=== PATIENT | female | born 1970 | race Caucasian/White ===

== ENCOUNTER 2019-03-07 12:18 | Emergency (ER) | payer OTHER ==
[~2019-03-07] VITALS: Ht 154.9 cm; Wt 86.0 kg
[2019-03-07 12:24] VITALS: BP 165/93; PULSE 95; RESP 18; Ht 154.9 cm; Wt 86.0 kg
[2019-03-07] MEDS ORDERED: ACET1TAB40 PO (12:53)
[2019-03-07] MEDS ORDERED: IBUP-1542 PO (12:53)
[2019-03-07] MEDS ORDERED: ACYC800T5 PO (12:53)
--- NOTE | 2019-03-07 12:59 | ERD ---
ER Documentation Chief Complaint Chief Complaint LEFT EYELID SWELLING & REDNESS X 1 DAY HPI 48-year-old female presents the lesion on her left forehead and some redness of her left upper eyelid. She has a burning pain radiating from her left ear area to her left side of her face. She has any visual changes, discharge or redness of the eye. Symptoms started yesterday. ROS All systems reviewed and are negative except as per history of present illness. Medications Home Meds Active Scripts Acetaminophen with Codeine (Acetaminophen-Cod #3 Tablet) 1 Each Tablet, 1 TAB PO Q6H PRN for PAIN, #7 TAB Prov:JAMES LOVE MD 03/07/19 Ibuprofen* (Motrin*) 600 Mg Tab, 600 MG PO Q6, #15 TAB Prov:JAMES LOVE MD 03/07/19 Acyclovir* (Zovirax*) 800 Mg Tablet, 800 MG PO 5 TIMES DAILY for 7 Days, TAB Prov:JAMES LOVE MD 03/07/19 Allergies Allergies: Coded Allergies: No Known Allergy (Unverified , 03/07/19) FmHx Family History: No diabetes, No coronary disease, No other Physical Exam Vitals Vital Signs Date Temp Pulse Resp B/P (MAP) Pulse Ox O2 O2 Flow FiO2 Time Delivery Rate 03/07/19 98.6 95 18 165/93 94 12:24 (117) Physical Exam Const: No acute distress Head: Atraumatic Eyes: Normal Conjunctiva scleral redness. Eyes Erik and extraocular movements intact. ENT: Normal External Ears, Nose and Mouth. There is a erythematous vesicular lesion on the left forehead. There is some irritation left upper eyelid. There is no appreciable Nolan sign. There is tender left anterior cervical or left-sided neck lymph node. Neck: Full range of motion. No meningismus. Resp: Clear to auscultation bilaterally Cardio: Regular rate and rhythm, no murmurs Abd: Soft, non tender, non distended. Normal bowel sounds Skin: No petechiae or rashes Back: No midline or flank tenderness Ext: No cyanosis, or edema Neur: Awake and alert Psych: Normal Mood and Affect Results 24 hrs Current Medications Medications Dose Sig/Germán Start Time Status Last (Trade) Ordered Route PRN Stop Time Admin Dose Reason Admin 12 mg ONCE ONCE 03/07/19 03/07/19 Dexamethasone PO 13:00 03/07/19 12:45 (Decadron) 13:01 Acyclovir 800 mg ONCE ONCE 03/07/19 03/07/19 (Zovirax) PO 13:00 03/07/19 12:45 13:01 Ibuprofen 600 mg ONCE ONCE 03/07/19 03/07/19 (Motrin) PO 13:00 03/07/19 12:45 13:01 Procedures/MDM Acuity shows no acute abnormalities. Patient presents with erythematous vesicular lesions in the left forehead consistent with herpes zoster. There is no signs or symptoms to suggest herpes ophthalmicus or encephalitis or additiona l complications.. There is no appreciable involvement of the eye. Patient was given acyclovir 800 mg, Decadron 12 mg as well as ibuprofen. She will be treated with acyclovir, Tylenol 3, ibuprofen, recommendations for primary care follow-up and return precautions for visual changes, pain in the eye, fevers, neurologic deficit, new or worsening symptoms. Departure Diagnosis: Primary Impression: Shingles Herpes zoster complications: without complications Qualified Codes: B02.9 - Zoster without complications Condition: Stable Patient Instructions: Shingles (Herpes Zoster) Additional Instructions: Cheque otro vez con hinson doctor primario en el proximo gallardo or regresa para mas o nueva simptomas. JAMES LOVE MD Mar 07, 2019 12:59
[2019-03-07] MEDS ORDERED: IBUPROFEN 600 MG TAB PO ONE (13:00)
[2019-03-07] MEDS ORDERED: DEXAMETHASONE 4 MG TAB PO ONE (13:00)
[2019-03-07] MEDS ORDERED: ACYCLOVIR 800 MG TAB PO ONE (13:00)
== END 2019-03-07 13:00 | disposition home or self-care (01) ==
LOC: FTE 12:18
DX: B02.9 Zoster without complications (principal)
CPT/HCPCS: Z7502; Z7610; 99283

== ENCOUNTER 2019-05-05 17:46 | Inpatient (IN) | payer OTHER ==
[~2019-05-05] VITALS: Ht 152.4 cm; Wt 87.5 kg
[~2019-05-05 17:46] MED LIST: ACET1TAB40 PO; ACYC800T5 PO; IBUP-1542 PO; LEVO500T10 PO; METR500T PO; SERT50TA6 PO
--- NOTE | 2019-05-05 18:00 | ERD ---
ER Documentation Chief Complaint Chief Complaint ap x 1 week HPI The patient is a 48-year-old female, presenting to the ER because of abdominal pain radiating to the back for the last 3 days, had similar symptoms about 6 months ago. She denies fever, chills, neck pain, chest pain, dyspnea, vomiting, diarrhea, constipation, complains of dysuria for 1 week. She does not smoke nor drink Past medical history: Anxiety, panic disorder, depression Past surgical history: 4 ROS All systems reviewed and are negative except as per history of present illness. Medications Home Meds Reported Medications Sertraline Hcl* (Sertraline Hcl*) 50 Mg Tablet, 50 MG PO QAM, #30 TAB 05/05/19 Discontinued Scripts Acetaminophen with Codeine (Acetaminophen-Cod #3 Tablet) 1 Each Tablet, 1 TAB PO Q6H PRN for PAIN, #7 TAB Prov:JAMES LOVE MD 03/07/19 Ibuprofen* (Motrin*) 600 Mg Tab, 600 MG PO Q6, #15 TAB Prov:JAMES LOVE MD 03/07/19 Acyclovir* (Zovirax*) 800 Mg Tablet, 800 MG PO 5 TIMES DAILY for 7 Days, TAB Prov:JAMES LOVE MD 03/07/19 Allergies Allergies: Coded Allergies: No Known Allergy (Unverified , 05/05/19) PMhx/Soc Hx Alcohol Use: No Hx Substance Use: No Hx Tobacco Use: No Physical Exam Vitals Vital Signs Date Temp Pulse Resp B/P (MAP) Pulse Ox O2 O2 Flow FiO2 Time Delivery Rate 05/05/19 99 16 116/75 96 Room Air 20:30 (89) 05/05/19 99.2 111 20 147/86 98 17:49 (106) Physical Exam Const: No acute distress. Head: Atraumatic. Eyes: Normal Conjunctiva. ENT: Normal External Ears, Nose and Mouth. Neck: Full range of motion. No meningismus. Resp: Clear to auscultation bilaterally. Cardio: Regular rate and rhythm. Abd: Soft, non distended, normal bowel sounds, left lower quadrant tenderness, no rigidity/rebound/CVA tenderness Skin: No petechiae or rashes. Back: No midline or flank tenderness. Ext: No cyanosis, or edema. Neur: Awake and alert. No focal deficit Psych: Normal Mood and Affect. Result Diagram: 05/05/196 05/05/19 1816 Results 24 hrs Laboratory Tests Test 05/05/19 18:16 05/05/19 19:54 05/05/19 19:56 White Blood Count 15.3 10^3/ul Red Blood Count 4.45 10^6/ul Hemoglobin 13.4 g/dl Hematocrit 40.4 % Mean Corpuscular Volume 90.8 fl Mean Corpuscular Hemoglobin 30.1 pg Mean Corpuscular Hemoglobin Concent 33.2 g/dl Red Cell Distribution Width 12.0 % Platelet Count 326 10^3/UL Mean Platelet Volume 8.6 fl Immature Granulocytes % 0.300 % Neutrophils % 66.8 % Lymphocytes % 20.8 % Monocytes % 7.0 % Eosinophils % 4.7 % Basophils % 0.4 % Nucleated Red Blood Cells % 0.0 /100WBC Immature Granulocytes # 0.050 10^3/ul Neutrophils # 10.2 10^3/ul Lymphocytes # 3.2 10^3/ul Monocytes # 1.1 10^3/ul Eosinophils # 0.7 10^3/ul Basophils # 0.1 10^3/ul Nucleated Red Blood Cells # 0.0 10^3/ul Sodium Level 141 mmol/L Potassium Level 3.9 mmol/L Chloride Level 103 mmol/L Carbon Dioxide Level 28 mmol/L Anion Gap 10 Blood Urea Nitrogen 11 mg/dl Creatinine 0.58 mg/dl Est Glomerular Filtrat Rate mL/min > 60 mL/min Glucose Level 86 mg/dl Calcium Level 9.5 mg/dl Total Bilirubin 0.5 mg/dl Direct Bilirubin 0.00 mg/dl Indirect Bilirubin 0.5 mg/dl Aspartate Amino Transf (AST/SGOT) 25 IU/L Alanine Aminotransferase (ALT/SGPT) 24 IU/L Alkaline Phosphatase 45 IU/L Total Protein 8.3 g/dl Albumin 4.8 g/dl Globulin 3.50 g/dl Albumin/Globulin Ratio 1.37 Lipase 59 U/L Bedside Urine pH (LAB) 7.0 Bedside Urine Protein (LAB) 2+ Bedside Urine Glucose (UA) Negative Bedside Urine Ketones (LAB) Negative Bedside Urine Blood 2+ Bedside Urine Nitrite (LAB) Negative Bedside Urine Leukocyte Esterase (L Negative POC Beta HCG, Qualitative NEGATIVE Current Medications Medications Dose Sig/Germán Start Time Status Last (Trade) Ordered Route PRN Stop Time Admin Dose Reason Admin Morphine 2 mg ONCE STAT 05/05/19 DC 05/05/19 Sulfate IV 18:11 05/05/19 18:27 (morphine) 18:13 Ondansetron 4 mg ONCE STAT 05/05/19 DC 05/05/19 HCl (Zofran IV 18:11 05/05/19 18:27 Inj) 18:13 Sodium 1,000 ml @ Q1H ONCE 05/05/19 DC 05/05/19 Chloride 1,000 mls/hr IV 18:30 05/05/19 18:27 19:29 0.5 mg ONCE STAT 05/05/19 DC 05/05/19 Hydromorphone IV 20:41 05/05/19 21:09 HCl 20:58 (Dilaudid) Piperacillin 100 ml @ ONCE ONCE 05/05/19 DC 05/05/19 Sod/ 200 mls/hr IVPB 21:00 05/05/19 21:09 Tazobactam 21:29 Sod Sodium 1,000 ml @ Q1H ONCE 05/05/19 DC 05/05/19 Chloride 1,000 mls/hr IV 21:00 05/05/19 21:09 21:59 Procedures/[place] [id number] Radiology Main Line: [phone] DIAGNOSTIC IMAGING REPORT Patient: ALMA DELIA ALEXANDER : 1970 Age: 48 Sex: F MR #: [id number] DOS: 05/05/19 [facility] Ordering MD: DARWIN WORKMAN MD Location: E/R Room/Bed: PROCEDURE: CT Abdomen and Pelvis without contrast. CLINICAL INDICATION: Pain. TECHNIQUE: CT scan of the abdomen and pelvis was performed on a multidetector slice CT scanner. No intravenous contrast material was utilized. Sagittal and coronal reformatted images were obtained from the axial source images. Images were reviewed on a high-resolution PACS workstation. Exam CTDlvol = 22 mGy and DLP = 1289 Gy-cm. One of the following 3 dose reduction techniques were used: Automated exposure control; adjustment of the mA and/or kV according to patient size; or use of iterative reconstruction technique. DICOM images are available. COMPARISON: None. FINDINGS: There is no bowel obstruction or ileus. The appendix is visualized. There is no evidence for appendicitis. There is right, left and sigmoid colon div erticulosis. There is focal wall thickening with surrounding infiltration in the distal left colon compatible with acute diverticulitis. There is no free fluid. There is no free intraperitoneal gas. The liver is overall normal in size. No intrahepatic lesions are identified. The gallbladder is normal in appearance. There is no definite biliary ductal dilation. Pancreas is normal in appearance. The spleen is unremarkable. There are no adrenal masses. The aorta is normal caliber. Atherosclerotic vascular calcifications are present. Kidneys are normal in appearance without hydronephrosis, mass or calculus. Ureters are of normal caliber and without evidence for an obstructing calculus. The urinary bladder is normal in appearance. Uterus is unremarkable. Right ovary is not well characterized. There is a 1.7 cm probable left ovarian cyst. There are multiple right pelvic/adnexal surgical clips. Limited evaluation of the lung bases demonstrates bibasilar atelectasis. There is 2.5 mm calcification in the right middle lobe. There are degenerative changes of the lumbar spine. IMPRESSION: 1. Distal left colon acute diverticulitis without free intraperitoneal gas, free fluid or collection. Diffuse colonic diverticulosis involving the right, left and sigmoid colon. 2. No bowel obstruction or ileus. 3. No evidence for appendicitis. 4. No obstructive uropathy. 5. Left adnexal/ovarian cyst. Right ovary not distinctly visualized. Multiple right pelvic/adnexal surgical clips. 6. Mild atherosclerotic dash calcification. 7. Degenerative changes of the lumbar spine. 8. Punctate right middle lobe granuloma. RPTAT: HMVK .Darwin Denise MD, MD Date Time Electronically viewed and signed by .Darwin Denise MD, on 05/05/2019 19:54 .K/ CC: DARWIN WORKMAN MD [phone] MEDICAL MAKING DECISION: The patient is a 48-year-old female, presenting with acute diverticulitis, acute hematuria, was treated with 1 L normal saline for clinical dehydration, morphine 2 mg IV, Dilaudid 0.5 mg IV for pain, Zofran IV for nausea with good response. The differential diagnoses considered include but are not limited to cholelithiasis, cholecystitis, choledocholithiasis, cholangitis, pancreatitis, hepatitis, gastritis, peptic ulcer disease, gastric ulcer, appendicitis, cystitis, diverticulitis, partial small bowel obstruction. Consultation: I discussed the patient with the on-call surgery edition Dr. Skinner at 8:45 PM, who was made aware of the lab, the treatment, the patient condition and he accepted the consult Departure Diagnosis: Primary Impression: Diverticulitis Additional Impression: Hematuria Condition: Stable Comments The patient's blood pressure was elevated (>120/80) but appears stable without e vidence of hypertension emergency or urgency. The patient was counseled about the risks of hypertension and urged to pursue outpatient monitoring and therapy within a week with their primary care physician. I discussed the findings with the patient. I notified the patient with Dr. Rivero at 9:15p via ORVIBO, who was made aware of the lab, the treatment, the patient condition. The patient is admitted to [facility] Disclaimer: Inadvertent spelling and grammatical errors are likely due to EHR/dictation software use and do not reflect on the overall quality of patient care. Also, please note that the electronic time recorded on this note does not necessarily reflect the actual time of the patient encounter. DARWIN WORKMAN MD May 05, 2019 18:00
[2019-05-05] MEDS ORDERED: ONDANSETRON 4 MG INJ IV STA (18:11)
[2019-05-05] MEDS ORDERED: morphine 2 MG INJ IV STA (18:11)
[2019-05-05] MEDS ORDERED: SOD CHLORIDE 0.9% 1,000 ML IV ONE ×2 (18:30→21:00)
[2019-05-05] MEDS ORDERED: HYDROmorphONE 0.5 MG/0.5 ML SYG IV STA (20:41)
[2019-05-05] MEDS ORDERED: PIPER-TAZO 3.375 GM IV (PMX) 100 ML IVPB ONE (21:00)
[2019-05-06] VITALS: BP 124/71; PULSE 92; RESP 18
[2019-05-06] MEDS ORDERED: ONDANSETRON 4 MG INJ IV PRN
[2019-05-06] MEDS ORDERED: HYDROmorphONE 0.5 MG/0.5 ML SYG IV PRN
[2019-05-06] MEDS: metroNIDAZOLE 500 MG/NS (PMX) 100 ML IVPB SCH ×4 (00:23→21:14)
[2019-05-06] MEDS: DEXTROSE 5%-0.9% NACL 1,000 ML IV SCH ×3 (00:24→18:14)
[2019-05-06 01:22] VITALS: Ht 152.4 cm; Wt 87.5 kg
[2019-05-06] MEDS: CEFTRIAXONE 1 GM/50 ML (PMX) 50 ML IVPB SCH (01:41)
[2019-05-06] MEDS: ACETAMINOPHEN 325 MG TAB PO PRN ×3 (01:45→18:20)
[2019-05-06 02:00] VITALS: BP 115/61; PULSE 83; RESP 18
[2019-05-06] MEDS: PANTOPRAZOLE 40 MG INJ IV SCH (05:29)
[2019-05-06 08:16] VITALS: BP 122/58; PULSE 78; RESP 16
[2019-05-06] MEDS: SERTRALINE 50 MG TAB PO SCH (08:49)
[2019-05-06 15:08] VITALS: BP 126/59; PULSE 76; RESP 16
--- NOTE | 2019-05-06 15:08 | QN ---
Documentation Comment PT SEEN AND EXAMINED DEREK LAUGHLIN MD May 06, 2019 15:08
--- NOTE | 2019-05-06 17:50 | HP ---
DATE OF ADMISSION: 05/05/2019 REASON FOR ADMISSION: Abdominal pain. HISTORY OF PRESENTING ILLNESS: This is a 48-year-old female with a past medical history of anxiety d isorder, panic disorder, depression, presented to the emergency department complaining of left lower quadrant pain for past 1 week. According to the patient, she has had 3 episodes of diverticulitis be fore. She was admitted in some [facility]. She was having left lower quadrant pain for the p ast 1 week associated with some mild nausea and came to the emergency department for further manageme nt. The patient denies any vomiting, any diarrhea. Denies any fevers and chills. The patient denie s any hematemesis, any melena, any blood per rectum. On admission, temperature was 99.2, pulse 111, respirations 20, blood pressure 147/66. White count was 15.3, hemoglobin 13.3, platelet count 326. BUN and creatinine within normal limit. The patient had CT of the abdomen and pelvis that showed dis jude left colon acute diverticulitis without free intraperitoneal gas, free fluid or collection, diffu se colon diverticulosis involving right and left and sigmoid colon. The patient was started on IV an tibiotics with Rocephin and Flagyl and was admitted for further management. PAST MEDICAL HISTORY: 1. Depression. 2. History of diverticulitis x3. ALLERGIES: NO KNOWN ALLERGIES. PAST SURGICAL HISTORY: x4. MEDICATIONS TAKING AT HOME: Sertraline 50. SOCIAL HISTORY: Denies any history of smoking, alcohol or any drug use. Lives with her family. Has PCP. REVIEW OF SYSTEMS: The patient complains of left lower quadrant pain associated with some nausea. D enied any hematemesis, any melena, any bright red blood per rectum. Denies any new focal neurologica l deficit. Denies any urinary symptoms. PHYSICAL EXAMINATION: VITAL SIGNS: Blood pressure 124/71, afebrile currently, pulse 92, respirations 18. GENERAL: The patient is awake, alert, oriented, does not appear to in any acute distress. HEENT: Pupils are equal, round, react to light. Obese. NECK: Supple. HEART: Regular rate and rhythm. LUNGS: Clear to auscultate bilaterally. ABDOMEN: The patient has some tenderness present on the left lower and upper quadrants. Positive yasmani wel sounds. Abdomen is distended. No peritoneal signs. EXTREMITIES: No clubbing, cyanosis or edema. NEUROLOGIC: Nonfocal. LABORATORY DATA: BUN of 9, creatinine 0.58. Lipase 59. White count of initially 15.3, platelet cou nt 326. UA: 2+ blood. DIAGNOSTIC DATA: CT of the abdomen and pelvis as above. ASSESSMENT AND PLAN: A 48-year-old female who presented with: 1. Left lower quadrant pain with nausea with leukocytosis and CT of the abdomen and pelvis consisten t with distal left colon acute diverticulitis without free intraperitoneal gas, free fluid or collect ion. 2. Leukocytosis secondary to #1. 3. Obesity. 4. Depression. PLAN: At this period of time, the patient is admitted to med/surg unit. The patient is kept n.p.o., started on IV fluids and also on IV Rocephin and Flagyl. GI will be consulted. The patient will li rober need a colonoscopy as an outpatient. Rest of the treatment will depend on the patient's hospita lization course. Dictated By: DEREK GRIFFIN/JUSTIN Conf#: [id number] DID#: [id number] CC: CASEY DOWLING MD; KATIE PUENTE MD;*EndCC*
--- NOTE | 2019-05-06 18:46 | CONS ---
DATE OF ADMISSION: 05/05/2019 DATE OF CONSULTATION: TYPE OF CONSULTATION: Gastroenterology. From Katie Lane MD, to Tanya Laguhlin MD. HISTORY OF PRESENT ILLNESS: The patient is a 48-year-old female, came to the ER complaining of abdom inal pain confined to the left lower quadrant for the last 3 days. She had on and off pain in that a jeanette for the last few months. No fever, no chills, no GI bleeding, no constipation. No pneumaturia. PAST MEDICAL HISTORY: Anxiety, panic disorder and depression. PAST SURGICAL HISTORY: Four . SOCIAL HISTORY: Does not smoke or drink alcohol. REVIEW OF SYSTEMS: Otherwise negative. HOME MEDICATIONS: Reviewed. She was on sertraline. HOSPITAL MEDICATIONS: Reviewed. She is on: 1. Pantoprazole 2. Ceftriaxone. 3. Metronidazole. ALLERGIES: NONE. PHYSICAL EXAMINATION: VITALS: Stable, overweight. GENERAL: Not in distress. CARDIOVASCULAR: No murmur, gallop or click. LUNGS: Clear. ABDOMEN: Soft, tenderness in the left lower quadrant, significant. Bowel sounds good. No mass felt per abdomen. EXTREMITIES: No edema. CENTRAL NERVOUS SYSTEM: Grossly within normal limits. LABORATORY DATA: CMP was grossly within normal limits. WBC which was 15.3 dropped down to 9.8. IMPRESSION: 1. Acute diverticulitis. 2. Obesity. 3. Depression. PLAN: To keep her n.p.o. Continue IV antibiotic. We will start her on clear liquid diet once abdom inal pain subsides. She will need a colonoscopy after 6 to 8 weeks. Thank you once again for you referral. Dictated By: KATIE LANE MD PJ/NTS Conf#: [id number] DID#: [id number] CC: CASEY DOWLING MD; TANYA LAUGHLIN;*EndCC*
[2019-05-06 19:43] VITALS: BP 126/70; PULSE 68; RESP 16
[2019-05-07] MEDS: CEFTRIAXONE 1 GM/50 ML (PMX) 50 ML IVPB SCH ×2 (00:11→23:12)
[2019-05-07 02:00] VITALS: BP 119/59; PULSE 67; RESP 18
[2019-05-07] MEDS: PANTOPRAZOLE 40 MG INJ IV SCH (05:41)
[2019-05-07] MEDS: metroNIDAZOLE 500 MG/NS (PMX) 100 ML IVPB SCH ×3 (05:41→21:28)
[2019-05-07] MEDS: DEXTROSE 5%-0.9% NACL 1,000 ML IV SCH ×2 (05:50→16:00)
[2019-05-07 07:31] VITALS: BP 126/74; PULSE 79; RESP 19
[2019-05-07] MEDS: ACETAMINOPHEN 325 MG TAB PO PRN (08:17)
[2019-05-07] MEDS: SERTRALINE 50 MG TAB PO SCH (08:17)
--- NOTE | 2019-05-07 09:57 | CONS ---
Assessment/Plan Assessment/Plan Hospital Course (Demo Recall) 48 yo femlae 1. Acute diverticulitis. 2. Obesity. 3. Depression. PLAN: Spoke with patient regarding colonoscopy 6-8 weeks post resolution, educated on diet changes. Continue IV abx Colonoscopy 6-8 weeks after complete resolution of diverticulitis NPO until pain subsides and can start of clear liquids Pt examined and plan of care d/w Dr. Lane Consultation Date/Type/Reason Admit Date/Time May 05, 2019 at 21:12 Initial Consult Date Date/Time of Note DATE: 05/07/19 TIME: 09:55 24 HR Interval Summary Free Text/Dictation Pt having intermittent pain in LLQ. Improved overall. Still has PTP. WBC wnl. Exam/Review of Systems Exam Vitals Vital Signs Date Temp Pulse Resp B/P (MAP) Pulse Ox O2 O2 Flow FiO2 Time Delivery Rate 05/07/19 98.1 79 19 126/74 96 Room Air 07:31 (91) Intake and Output 05/06/19 05/06/19 05/07/19 1515:00 23:00 07:00 IntakeIntake Total 750 ml 1450 ml BalanceBalance 750 ml 1450 ml Constitutional: alert, oriented Psych: no complaints Head: normocephalic Eyes: nl sclera, PERRL Respiratory: normal air movement Cardiovascular: regular rate and rhythm Gastrointestinal: soft, bowel sounds, tender Musculoskeletal: nl gait and stance Neurological: nl mental status Results Result Diagram: 05/07/19 0600 05/07/19 0600 Results 24hrs Laboratory Tests Test 05/07/19 06:00 White Blood Count 7.0 # Red Blood Count 4.00 L Hemoglobin 12.0 Hematocrit 36.3 L Mean Corpuscular Volume 90.8 Mean Corpuscular Hemoglobin 30.0 Mean Corpuscular Hemoglobin Concent 33.1 Red Cell Distribution Width 11.9 Platelet Count 281 Mean Platelet Volume 8.7 Immature Granulocytes % 0.400 Neutrophils % 58.0 Lymphocytes % 26.1 Monocytes % 7.7 Eosinophils % 7.2 H Basophils % 0.6 Nucleated Red Blood Cells % 0.0 Immature Granulocytes # 0.030 Neutrophils # 4.1 Lymphocytes # 1.8 Monocytes # 0.5 Eosinophils # 0.5 Basophils # 0.0 Nucleated Red Blood Cells # 0.0 Sodium Level 138 Potassium Level 3.6 Chloride Level 105 Carbon Dioxide Level 30 Anion Gap 3 L Blood Urea Nitrogen 5 L Creatinine 0.50 Est Glomerular Filtrat Rate mL/min > 60 Glucose Level 97 Calcium Level 8.7 Phosphorus Level 3.9 Magnesium Level 1.7 Medications Medication Current Medications Dextrose/Sodium Chloride 1,000 ml @ 100 mls/hr Q10H IV Last administered on 05:50; Admin Dose 100 MLS/HR; Start 05/06/19 at 00:00 Pantoprazole (Protonix Iv) 40 mg DAILY@06 IV Last administered on 05/07/19 05:41; Admin Dose 40 MG; Start 05/06/19 at 06:00 Acetaminophen (Tylenol Tab) 650 mg Q6H PRN PO MILD PAIN(1-3)OR ELEVATED TEMP Last administered on 05/07/19 08:17; Admin Dose 650 MG; Start 05/06/19 at 00:00 Ceftriaxone Sodium 50 ml @ 100 mls/hr Q24H IVPB Last administered on 05/07/19 00:11; Admin Dose 100 MLS/HR; Start 05/06/19 at 00:00 Metronidazole 100 ml @ 100 mls/hr Q8 IVPB Last administered on 05/07/19 05:41; Admin Dose 100 MLS/HR; Start 05/06/19 at 00:00 Ondansetron HCl (Zofran Inj) 4 mg Q6H PRN IV NAUSEA AND/OR VOMITING; Start 05/06/19 at 00:00 Hydromorphone HCl (Dilaudid) 0.5 mg Q4H PRN IV SEVERE PAIN LEVEL 7-10 Last administered on 05/06/19 21:15; Admin Dose 0.5 MG; Start 05/06/19 at 00:00 Sertraline HCl (Zoloft) 50 mg QAM PO Last administered on 05/07/19 08:17; Admin Dose 50 MG; Start 05/06/19 at 09:00 JOSSUE BRIDGES May 07, 2019 09:56
--- NOTE | 2019-05-07 14:03 | PN ---
Date/Time of Note Date/Time of Note DATE: 05/07/19 TIME: 13:48 Assessment/Plan VTE [place]axis [place] [facility] [place]: 2 [place]CD [place] [facility] [place] SCD contraindicated: low risk/ambulating Pharmacological prophylaxis: NA/contraindicated Pharm contraindication: surgical contra Lines/Catheters IV C[facility]ter Type (from [facility]): Peripheral IV Urinary Cath still in place: No Assessment/Plan Hospital Course 1. Left lower quadrant pain with nausea with leukocytosis and CT of the abdomen and pelvis consistent with distal left colon acute diverticulitis without free intraperitoneal gas, free fluid or collection. 2. Leukocytosis secondary to #1, improved. 3. Obesity. 4. Depression. 5. Proteinuria 6. S/p 4 c section Assessment/Plan -med/surg unit. -ambulate -Continue n.p.o., -conTinue with IV fluids GI prophylaxis Protonix -DVT prophylaxis stocking compressive devices bilaterally, unable to utilize chemical agents due to pending/symptom surgery -c/w IV Rocephin and Flagyl. - GI consulted Dr. Lane is appreciated -need a colonoscopy as an outpatient. Result Diagram: 05/07/19 0600 05/07/19 0600 Results 24hrs Laboratory Tests Test 05/07/19 06:00 White Blood Count 7.0 # Red Blood Count 4.00 L Hemoglobin 12.0 Hematocrit 36.3 L Mean Corpuscular Volume 90.8 Mean Corpuscular Hemoglobin 30.0 Mean Corpuscular Hemoglobin Concent 33.1 Red Cell Distribution Width 11.9 Platelet Count 281 Mean Platelet Volume 8.7 Immature Granulocytes % 0.400 Neutrophils % 58.0 Lymphocytes % 26.1 Monocytes % 7.7 Eosinophils % 7.2 H Basophils % 0.6 Nucleated Red Blood Cells % 0.0 Immature Granulocytes # 0.030 Neutrophils # 4.1 Lymphocytes # 1.8 Monocytes # 0.5 Eosinophils # 0.5 Basophils # 0.0 Nucleated Red Blood Cells # 0.0 Sodium Level 138 Potassium Level 3.6 Chloride Level 105 Carbon Dioxide Level 30 Anion Gap 3 L Blood Urea Nitrogen 5 L Creatinine 0.50 Est Glomerular Filtrat Rate mL/min > 60 Glucose Level 97 Calcium Level 8.7 Phosphorus Level 3.9 Magnesium Level 1.7 Subjective 24 Hr Interval Summary Constitutional: improved Gastrointestinal: pain; No no complaints, No blood, No constipation, No decreased appetite, No diarrhea, No flatus, No nausea, No passing stool, No vomiting, No other Exam/Review of Systems Exam Vitals Vital Signs Date Temp Pulse Resp B/P (MAP) Pulse Ox O2 O2 Flow FiO2 Time Delivery Rate 05/07/19 98.1 79 19 126/74 96 Room Air 07:31 (91) Intake and Output 05/06/19 05/06/19 05/07/19 1515:00 23:00 07:00 IntakeIntake Total 750 ml 1450 ml BalanceBalance 750 ml 1450 ml Exam No acute distress, no events overnight. Eyes: anicteric, EOM's intact, no pallor Nose: no rhinorrhea Neck: supple, no thyromegaly, no carotid bruits Lungs: clear bilaterally, decreased. CVS: regular rate and rhythm, no murmurs Abdomen: soft, bowel sounds present, no hepatosplenomegally, no masses, no rebound or guarding, vertical and horisontal scars, , abdomen deformity Rectal: differed. External genitalia: no lesions. Extremities: no edema, DP pulses are palpable Neuro: alert and oriented x 3 Gait: normal Motor strength: 5+/5+ Sensory exam: normal Deep tendon reflexes: normal, Babisky reflexes are absent bilaterally Skin: no lesions Results Results 24hrs Laboratory Tests Test 05/07/19 06:00 White Blood Count 7.0 # Red Blood Count 4.00 L Hemoglobin 12.0 Hematocrit 36.3 L Mean Corpuscular Volume 90.8 Mean Corpuscular Hemoglobin 30.0 Mean Corpuscular Hemoglobin Concent 33.1 Red Cell Distribution Width 11.9 Platelet Count 281 Mean Platelet Volume 8.7 Immature Granulocytes % 0.400 Neutrophils % 58.0 Lymphocytes % 26.1 Monocytes % 7.7 Eosinophils % 7.2 H Basophils % 0.6 Nucleated Red Blood Cells % 0.0 Immature Granulocytes # 0.030 Neutrophils # 4.1 Lymphocytes # 1.8 Monocytes # 0.5 Eosinophils # 0.5 Basophils # 0.0 Nucleated Red Blood Cells # 0.0 Sodium Level 138 Potassium Level 3.6 Chloride Level 105 Carbon Dioxide Level 30 Anion Gap 3 L Blood Urea Nitrogen 5 L Creatinine 0.50 Est Glomerular Filtrat Rate mL/min > 60 Glucose Level 97 Calcium Level 8.7 Phosphorus Level 3.9 Magnesium Level 1.7 Medications Medication Current Medications Dextrose/Sodium Chloride 1,000 ml @ 100 mls/hr Q10H IV Last administered on 05/07/19 05:50; Admin Dose 100 MLS/HR; Start 05/06/19 at 00:00 Pantoprazole (Protonix Iv) 40 mg DAILY@06 IV Last administered on 05/07/19 05:41; Admin Dose 40 MG; Start 05/06/19 at 06:00 Acetaminophen (Tylenol Tab) 650 mg Q6H PRN PO MILD PAIN(1-3)OR ELEVATED TEMP Last administered on 05/07/19 08:17; Admin Dose 650 MG; Start 05/06/19 at 00:00 Ceftriaxone Sodium 50 ml @ 100 mls/hr Q24H IVPB Last administered on 05/07/19 00:11; Admin Dose 100 MLS/HR; Start 05/06/19 at 00:00 Metronidazole 100 ml @ 100 mls/hr Q8 IVPB Last administered on 05/07/19 05:41; Admin Dose 100 MLS/HR; Start 05/06/19 at 00:00 Ondansetron HCl (Zofran Inj) 4 mg Q6H PRN IV NAUSEA AND/OR VOMITING; Start 05/06/19 at 00:00 Hydromorphone HCl (Dilaudid) 0.5 mg Q4H PRN IV SEVERE PAIN LEVEL 7-10 Last administered on 05/06/19 21:15; Admin Dose 0.5 MG; Start 05/06/19 at 00:00 Sertraline HCl (Zoloft) 50 mg QAM PO Last administered on 05/07/19 08:17; Admin Dose 50 MG; Start 05/06/19 at 09:00 HERB BECERRIL NP May 07, 2019 14:01
[2019-05-07 14:04] VITALS: BP 128/63; PULSE 63; RESP 16
[2019-05-07 20:03] VITALS: BP 128/68; PULSE 92; RESP 18
[2019-05-08] MEDS: DEXTROSE 5%-0.9% NACL 1,000 ML IV SCH ×2 (01:47→14:35)
[2019-05-08 02:00] VITALS: BP 142/65; PULSE 79; RESP 18
[2019-05-08] MEDS: PANTOPRAZOLE 40 MG INJ IV SCH (05:32)
[2019-05-08] MEDS: metroNIDAZOLE 500 MG/NS (PMX) 100 ML IVPB SCH ×3 (05:33→21:49)
[2019-05-08 07:28] VITALS: BP 122/60; PULSE 77; RESP 18
[2019-05-08] MEDS: SERTRALINE 50 MG TAB PO SCH (09:33)
--- NOTE | 2019-05-08 13:59 | CONS ---
Assessment/Plan Assessment/Plan Assessment/Plan (Daily) IMPRESSION: 1. Acute diverticulitis. 2. Obesity. 3. Depression. Plan Advance diet Complete the course of antibiotic Colonoscopy after 6 weeks Consultation Date/Type/Reason Admit Date/Time May 05, 2019 at 21:12 Initial Consult Date Date/Time of Note DATE: 05/08/19 TIME: 13:59 24 HR Interval Summary Constitutional: improved Exam/Review of Systems Exam Vitals Vital Signs Date Temp Pulse Resp B/P (MAP) Pulse Ox O2 O2 Flow FiO2 Time Delivery Rate 05/08/19 98.3 77 18 122/60 96 Room Air 07:28 (80) Intake and Output 05/07/19 05/07/19 05/08/19 1515:00 23:00 07:00 IntakeIntake Total 1800 ml 1120 ml OutputOutput Total 350 ml 200 ml BalanceBalance 1450 ml 920 ml Constitutional: alert, oriented, well developed Psych: no complaints, nl mood/affect Head: normocephalic, atraumatic Eyes: nl conjunctiva, EOMI, nl lids, nl sclera, PERRL ENMT: nl external ears & nose, nl lips & teeth, nl nasal mucosa & septum Neck: supple, non-tender Respiratory: clear to auscultation, normal air movement Cardiovascular: regular rate and rhythm, nl pulses Gastrointestinal: soft, nl liver, spleen, non-tender Musculoskeletal: nl extremities to inspection, nl gait and stance Extremities: normal pulses Neurological: VENEER SAWYER II-XII intact, nl mental status, nl speech, nl strength Skin: nl turgor; No rash or lesions Lymph: nl lymph nodes Results Result Diagram: 05/08/199 05/08/19448 Results 24hrs Laboratory Tests Test 05/08/19 04:49 White Blood Count 7.5 Red Blood Count 3.92 L Hemoglobin 12.0 Hematocrit 35.0 L Mean Corpuscular Volume 89.3 Mean Corpuscular Hemoglobin 30.6 Mean Corpuscular Hemoglobin Concent 34.3 Red Cell Distribution Width 11.9 Platelet Count 306 Mean Platelet Volume 8.4 Immature Granulocytes % 0.300 Neutrophils % 57.8 Lymphocytes % 27.8 Monocytes % 7.7 Eosinophils % 5.7 Basophils % 0.7 Nucleated Red Blood Cells % 0.0 Immature Granulocytes # 0.020 Neutrophils # 4.4 Lymphocytes # 2.1 Monocytes # 0.6 Eosinophils # 0.4 Basophils # 0.1 Nucleated Red Blood Cells # 0.0 Sodium Level 138 Potassium Level 3.2 L Chloride Level 106 Carbon Dioxide Level 26 Anion Gap 6 Blood Urea Nitrogen 3 L Creatinine 0.48 Est Glomerular Filtrat Rate mL/min > 60 Glucose Level 102 Calcium Level 8.9 Medications Medication Current Medications Dextrose/Sodium Chloride 1,000 ml @ 100 mls/hr Q10H IV Last administered on 05/08/19 01:47; Admin Dose 100 MLS/HR; Start 05/06/19 at 00:00 Pantoprazole (Protonix Iv) 40 mg DAILY@06 IV Last administered on 05/08/19 05:32; Admin Dose 40 MG; Start 05/06/19 at 06:00 Acetaminophen (Tylenol Tab) 650 mg Q6H PRN PO MILD PAIN(1-3)OR ELEVATED TEMP Last administered on 05/07/19 08:17; Admin Dose 650 MG; Start 05/06/19 at 00:00 Ceftriaxone Sodium 50 ml @ 100 mls/hr Q24H IVPB Last administered on 05/07/19 23:12; Admin Dose 100 MLS/HR; Start 05/06/19 at 00:00 Metronidazole 100 ml @ 100 mls/hr Q8 IVPB Last administered on 05/08/19 13:46; Admin Dose 100 MLS/HR; Start 05/06/19 at 00:00 Ondansetron HCl (Zofran Inj) 4 mg Q6H PRN IV NAUSEA AND/OR VOMITING; Start 05/06/19 at 00:00 Hydromorphone HCl (Dilaudid) 0.5 mg Q4H PRN IV SEVERE PAIN LEVEL 7-10 Last administered on 05/06/19 21:15; Admin Dose 0.5 MG; Start 05/06/19 at 00:00 Sertraline HCl (Zoloft) 50 mg QAM PO Last administered on 05/08/19 09:33; Admin Dose 50 MG; Start 05/06/19 at 09:00 KATIE PUENTE MD May 08, 2019 13:59
[2019-05-08 14:12] VITALS: BP 120/61; PULSE 85; RESP 18
--- NOTE | 2019-05-08 14:50 | PN ---
Date/Time of Note Date/Time of Note DATE: 05/08/19 TIME: 14:48 Assessment/Plan VTE Prophylaxis Risk score (from [facility]0 risk: 3 [place]CD [place] [facility] [place] SCD contraindicated: low risk/ambulating Pharmacological prophylaxis: NA/contraindicated Pharm contraindication: low risk/ambulating Lines/Catheters IV Catheter Type (from [facility]): Peripheral IV Urinary Cath still in place: No Assessment/Plan Hospital Course 1. Left lower quadrant pain with nausea with leukocytosis and CT of the abdomen and pelvis consistent with distal left colon acute diverticulitis without free intraperitoneal gas, free fluid or collection. 2. Leukocytosis secondary to #1, improved. 3. Obesity. 4. Depression. 5. Proteinuria 6. S/p 4 c section Assessment/Plan d/c tomorrow decrease IV fluids -pain meds -soft diet tonight -ambulate -potassium Supplement. Result Diagram: 05/08/199 05/08/199 Results 24hrs Laboratory Tests Test 05/08/19 04:49 White Blood Count 7.5 Red Blood Count 3.92 L Hemoglobin 12.0 Hematocrit 35.0 L Mean Corpuscular Volume 89.3 Mean Corpuscular Hemoglobin 30.6 Mean Corpuscular Hemoglobin Concent 34.3 Red Cell Distribution Width 11.9 Platelet Count 306 Mean Platelet Volume 8.4 Immature Granulocytes % 0.300 Neutrophils % 57.8 Lymphocytes % 27.8 Monocytes % 7.7 Eosinophils % 5.7 Basophils % 0.7 Nucleated Red Blood Cells % 0.0 Immature Granulocytes # 0.020 Neutrophils # 4.4 Lymphocytes # 2.1 Monocytes # 0.6 Eosinophils # 0.4 Basophils # 0.1 Nucleated Red Blood Cells # 0.0 Sodium Level 138 Potassium Level 3.2 L Chloride Level 106 Carbon Dioxide Level 26 Anion Gap 6 Blood Urea Nitrogen 3 L Creatinine 0.48 Est Glomerular Filtrat Rate mL/min > 60 Glucose Level 102 Calcium Level 8.9 Subjective 24 Hr Interval Summary Constitutional: improved Gastrointestinal: pain; No no complaints, No blood, No constipation, No decreased appetite, No diarrhea, No flatus, No nausea, No passing stool, No vomiting, No other Exam/Review of Systems Exam Vitals Vital Signs Date Temp Pulse Resp B/P (MAP) Pulse Ox O2 O2 Flow FiO2 Time Delivery Rate 05/08/19 98.4 85 18 120/61 97 Room Air 14:12 (80) Intake and Output 05/07/19 05/07/19 05/08/19 1515:00 23:00 07:00 IntakeIntake Total 1800 ml 1120 ml OutputOutput Total 350 ml 200 ml BalanceBalance 1450 ml 920 ml Exam No acute distress, no events overnight. Eyes: anicteric, EOM's intact, no pallor Nose: no rhinorrhea Neck: supple, no thyromegaly, no carotid bruits Lungs: clear bilaterally, decreased. CVS: regular rate and rhythm, no murmurs Abdomen: soft, bowel sounds present, no hepatosplenomegally, no masses, slightly guarding LLQ. Rectal: differed. External genitalia: no lesions. Extremities: no edema, DP pulses are palpable Neuro: alert and oriented x 3 Gait: normal Motor strength: 5+/5+ Sensory exam: normal Skin: no lesions Results Results 24hrs Laboratory Tests Test 05/08/19 04:49 White Blood Count 7.5 Red Blood Count 3.92 L Hemoglobin 12.0 Hematocrit 35.0 L Mean Corpuscular Volume 89.3 Mean Corpuscular Hemoglobin 30.6 Mean Corpuscular Hemoglobin Concent 34.3 Red Cell Distribution Width 11.9 Platelet Count 306 Mean Platelet Volume 8.4 Immature Granulocytes % 0.300 Neutrophils % 57.8 Lymphocytes % 27.8 Monocytes % 7.7 Eosinophils % 5.7 Basophils % 0.7 Nucleated Red Blood Cells % 0.0 Immature Granulocytes # 0.020 Neutrophils # 4.4 Lymphocytes # 2.1 Monocytes # 0.6 Eosinophils # 0.4 Basophils # 0.1 Nucleated Red Blood Cells # 0.0 Sodium Level 138 Potassium Level 3.2 L Chloride Level 106 Carbon Dioxide Level 26 Anion Gap 6 Blood Urea Nitrogen 3 L Creatinine 0.48 Est Glomerular Filtrat Rate mL/min > 60 Glucose Level 102 Calcium Level 8.9 Medications Medication Current Medications Dextrose/Sodium Chloride 1,000 ml @ 100 mls/hr Q10H IV Last administered on 05/08/19at 14:35; Admin Dose 100 MLS/HR; Start 05/06/19 at 00:00 Pantoprazole (Protonix Iv) 40 mg DAILY@06 IV Last administered on 05/08/19at 05:32; Admin Dose 40 MG; Start 05/06/19 at 06:00 Acetaminophen (Tylenol Tab) 650 mg Q6H PRN PO MILD PAIN(1-3)OR ELEVATED TEMP Last administered on 05/07/19 08:17; Admin Dose 650 MG; Start 05/06/19 at 00:00 Ceftriaxone Sodium 50 ml @ 100 mls/hr Q24H IVPB Last administered on 05/07/19 23:12; Admin Dose 100 MLS/HR; Start 05/06/19 at 00:00 Metronidazole 100 ml @ 100 mls/hr Q8 IVPB Last administered on 05/08/19 13:46; Admin Dose 100 MLS/HR; Start 05/06/19 at 00:00 Ondansetron HCl (Zofran Inj) 4 mg Q6H PRN IV NAUSEA AND/OR VOMITING; Start 05/06/19 at 00:00 Hydromorphone HCl (Dilaudid) 0.5 mg Q4H PRN IV SEVERE PAIN LEVEL 7-10 Last administered on 05/06/19at 21:15; Admin Dose 0.5 MG; Start 05/06/19 at 00:00 Sertraline HCl (Zoloft) 50 mg QAM PO Last administered on 05/08/19 09:33; Admin Dose 50 MG; Start 05/06/19 at 09:00 HERB BECERRIL NP May 08, 2019 14:50
[2019-05-08] MEDS ORDERED: POTASSIUM CHLORIDE 20 MEQ POWDER FOR ORAL SOLN PO ONE (15:00)
[2019-05-08 20:30] VITALS: BP 130/64; PULSE 77; RESP 16
[2019-05-08] MEDS: CEFTRIAXONE 1 GM/50 ML (PMX) 50 ML IVPB SCH (23:38)
[2019-05-09 01:42] VITALS: BP 113/63; PULSE 71; RESP 18
[2019-05-09] MEDS: PANTOPRAZOLE 40 MG INJ IV SCH (05:41)
[2019-05-09] MEDS: metroNIDAZOLE 500 MG/NS (PMX) 100 ML IVPB SCH ×2 (05:41→13:46)
[2019-05-09 07:38] VITALS: BP 117/63; PULSE 79; RESP 15
[2019-05-09] MEDS: SERTRALINE 50 MG TAB PO SCH (08:30)
--- NOTE | 2019-05-09 11:10 | PDOCDIS ---
Discharge Instructions DIAGNOSIS Discharge Diagnosis Acute diverticulitis CONDITION [id number] Patient Condition: [id number] Stable HOME CARE INSTRUCTIONS: [id number] Special Diet: [id number] low residue diet ACTIVITY: [id number] Activity Restrictions: [id number] Slowly Increase Activity Rest between Activity Avoid heavy lifting [id number] Activity Restrictions Comment: [place] no work 1 week FOLLOW UP/APPOINTMENTS Follow-up Plan PCP 1-2 weeks HERB BECERRIL NP May 09, 2019 11:10
--- NOTE | 2019-05-09 11:13 | DS ---
Date/Time of Note Date/Time of Note DATE: 05/09/19 TIME: 11:13 Discharge Summary Admission/Discharge Info Admit Date/Time May 05, 2019 at 21:12 Discharge Date/Time Discharge Diagnosis Acute diverticulitis Patient Condition: Stable Consults Dr Lane, gastroenterology Procedures none Hospital Course This is a 48-year-old female with a past medical history of anxiety disorder, panic disorder, depression, presented to the emergency department complaining of left lower quadrant pain for past 1 week. According to the patient, she has had 3 episodes of diverticulitis before. She was admitted in some [facility]. She was having left lower quadrant pain for the past 1 week asso ciated with some mild nausea and came to the emergency department for further management. The patient denies any vomiting, any diarrhea. Denies any fevers and chills. The patient denies any hematemesis, any melena, any blood per rectum. On admission, temperature was 99.2, pulse 111, respirations 20, blood pressure 147/66. White count was 15.3, hemoglobin 13.3, platelet count 326. BUN and creatinine within normal limit. The patient had CT of the abdomen and pelvis that showed distal left colon acute diverticulitis without free intraperitoneal gas, free fluid or collection, diffuse colon diverticulosis involving right and left and sigmoid colon. The patient was started on IV antibiotics with Rocephin and Flagyl and was admitted for further management. PAST MEDICAL HISTORY: 1. Depression. 2. History of diverticulitis x3. ALLERGIES: NO KNOWN ALLERGIES. PAST SURGICAL HISTORY: x4. MEDICATIONS TAKING AT HOME: Sertraline 50. SOCIAL HISTORY: Denies any history of smoking, alcohol or any drug use. Lives with her family. Has PCP. Dx; 1. Left lower quadrant pain with nausea with leukocytosis and CT of the ab domen and pelvis consistent with distal left colon acute diverticulitis without free intraperitoneal gas, free fluid or collection. 2. Leukocytosis secondary to #1, improved. 3. Obesity. 4. Depression. 5. Proteinuria 6. S/p 4 c section During hospitalization patient was seen by numerous specialists. Dr. Lane was GI consult. We followed his recommendations. Initially pt was NPO and we gave her IV fluids and administer her IV Flagyl. Patient was on medsurg service. Pain was controlled. Patient is clinically improved. She was started on clear liquid diet, then patient was able to tolerate regular diet, was able to ambulat e, and does not require an additional oxygenation. Plan of care was discussed with Dr. Rivero. In stable condition patient was discharged. Patient was instructed to continue designated medications. Patient was instructed to see primary care provider in 1 week. All questions were answered and all problems were addressed. Home Meds Active Scripts Levofloxacin* (Levofloxacin*) 500 Mg Tablet, 500 MG PO DAILY for 7 Days, TAB Prov:HERB BECERRIL NP 05/09/19 Metronidazole* (Flagyl*) 500 Mg Tablet, 500 MG PO TID for 7 Days, TAB Prov:HERB BECERRIL NP 05/09/19 Reported Medications Sertraline Hcl* (Sertraline Hcl*) 50 Mg Tablet, 50 MG PO QAM, #30 TAB 05/05/19 Follow-up Plan PCP 1-2 weeks Primary Care Provider Not On Staff Doctor Time spent on discharge: < 30 minutes HERB BECERRIL NP May 09, 2019 11:13
== END 2019-05-09 14:22 | disposition home or self-care (01) | DRG 392 ==
LOC: E/R 17:46 → 2NE 21:12
PROVIDERS: ADMIT Internal Medicine Nephrology; ATTEND Internal Medicine Nephrology
DX: K57.32 Diverticulitis of large intestine without perforation or abscess without bleeding (principal); E66.9 Obesity, unspecified; F32.9 Major depressive disorder, single episode, unspecified; Z68.37 Body mass index [BMI] 37.0-37.9, adult
CPT/HCPCS: 36415; 74176; 80048; 80053; 81003; 81025; 83690; 83735; 84100; 85025; 96374; 96375; C9113; J0696; J1170; J2270; J2405; J2543; J7030; J7042